=== PATIENT | female | born 2005 ===

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

== ENCOUNTER → 2025-01-16 10:26 | Outpatient (BNVA) | payer BC, MEDICAID, SELFPAY | PROVIDERS: PCP Nurse Practitioner Family; Visit Provider Obstetrics & Gynecology | DX: Z34.90 Encounter for supervision of normal pregnancy, unspecified, unspecified trimester (principal) | CPT/HCPCS: 84315 ==

== ENCOUNTER → 2025-01-30 09:57 | Outpatient (BNVA) | payer BC, MEDICAID, SELFPAY | PROVIDERS: PCP Nurse Practitioner Family; Visit Provider Nurse Practitioner Women's Health | DX: O26.893 Other specified pregnancy related conditions, third trimester (principal); Z3A.33 33 weeks gestation of pregnancy | CPT/HCPCS: 76816; 84315 ==

== ENCOUNTER → 2025-02-15 14:31 | Outpatient (BNVA) | payer BC, MEDICAID, SELFPAY | PROVIDERS: PCP Nurse Practitioner Family; Visit Provider Obstetrics & Gynecology | DX: Z34.90 Encounter for supervision of normal pregnancy, unspecified, unspecified trimester (principal) | CPT/HCPCS: 84315 ==

== ENCOUNTER → 2025-02-22 15:22 | Outpatient (BNVA) | payer BC, MEDICAID, SELFPAY | PROVIDERS: PCP Nurse Practitioner Family; Visit Provider Obstetrics & Gynecology | DX: Z34.90 Encounter for supervision of normal pregnancy, unspecified, unspecified trimester (principal) | CPT/HCPCS: 84315 ==

== ENCOUNTER → 2025-03-01 14:54 | Outpatient (BNVA) | payer BC, MEDICAID, SELFPAY | PROVIDERS: PCP Nurse Practitioner Family; Visit Provider Obstetrics & Gynecology | DX: Z34.90 Encounter for supervision of normal pregnancy, unspecified, unspecified trimester (principal) | CPT/HCPCS: 84315 ==

== ENCOUNTER → 2025-03-08 14:51 | Outpatient (BNVA) | payer BC, MEDICAID, SELFPAY | PROVIDERS: PCP Nurse Practitioner Family; Visit Provider Obstetrics & Gynecology | DX: Z34.90 Encounter for supervision of normal pregnancy, unspecified, unspecified trimester (principal) | CPT/HCPCS: 84315 ==

== ENCOUNTER → 2025-03-09 13:27 | Outpatient (BNVA) | payer BC, MEDICAID, SELFPAY | PROVIDERS: PCP Nurse Practitioner Family; Visit Provider Obstetrics & Gynecology | DX: Z3A.09 9 weeks gestation of pregnancy (principal) | CPT/HCPCS: 84315 ==

== ENCOUNTER 2025-03-16 11:48 | Inpatient (IN) | payer BC, MEDICAID, SELFPAY ==
[2025-03-16] VITALS (43 sets, daily range): BP systolic 102–169; BP diastolic 52–96; PULSE 79–116; RESP 17–18; TEMP 36.7–36.8; O2SAT 89–100; BMI 56.7
[2025-03-16] MEDS: miSOPROStol 100 mcg tablet 25 MCG VAGINAL (12:37)
[2025-03-16 12:38] LABS: Basophils % 0.2 %; Eosinophils # 0.1 10^3/uL (0.0-0.8); Eosinophils % 0.8 %; Hematocrit 33.8 % (36-47); Lymphocytes % 16.7 %; Mean Corpuscular HGB Conc 32.2 g/dL (30-55); Mean Corpuscular Volume 80.7 fl (85-98); Mean Platelet Volume 10.4 fL (7.4-10.4); Monocytes # 0.9 10^3/uL (0.2-0.9); Monocytes % 7.2 %; Neutrophils # 9.08 10^3/uL (1.8-8.0); Neutrophils % 74.4 %; Nucleated Red Blood Cells % 0 %; Platelet Count 270 10^3/cmm (157-399); Red Blood Count 4.19 10^6/uL (3.85-5.65); Red Cell Distribution Width 15.9 % (12.1-15.1); White Blood Count 12.21 10^3/uL (4.5-13.0)
--- NOTE | 2025-03-16 13:40 | P.HP_ITS ---
Providers/Chief Complaint 2 Admitting Physician: Sameer Contreras MD Primary SWEATBAND SEPARATOR: Saemer Contreras MD Primary Care Provider: Oumar Hopkins NP Chief Complaint: INDUCTION OF LABOR HPI SWEATBAND SEPARATOR History of Present Illness Victor Hugo King is a 19 year old female G1 [facility] March 13, 2025 At 40 w 3 d No complications Admitted for induction of labor No c/o + active movements Present Details : 1 Para: 0 Labs Rubella: Immune RPR: Negative GBS: Positive Medications/Allergies Home Medications ?Medication ?Instructions ?Recorded ?Confirmed ?Last Taken ?Type famotidine 20 mg tablet (Pepcid) 20 mg PO BID #60 tabs 01/30/25 03/17/25 Unknown Rx ferrous sulfate 325 mg (65 mg 325 mg PO .every other d ay #30 tabs 01/30/25 03/17/25 Unknown Rx iron) tablet,delayed release Allergies Allergy/AdvReac Type Severity Reaction Status Date / Time No Known Allergies Allergy Verified 03/09/25 13:36 PFSH SWEATBAND SEPARATOR 2 PFSH: Family History Grandmother Colon cancer Father Diabetes Denies family history of Ovarian cancer Prostate cancer Heart disease Hyperlipidemia Breast cancer Hypertension Uterine cancer Thyroid disease Stroke Social History Smoking and tobacco/nicotine status: never used tobacco/nicotine History History History 2 1 Term Miscarriages/Ectopic Living Children Care AYDEN Calculator 2 Estimated Delivery Date Method Current WG Current Estimate 03/13/25 Ultrasound #1 40w 5d Specific Issues/Plans * * NAUSEA IN * GROUP B STREP POSITIVE UTI: + urine culture on 08/08/24, treated with augmentin 08/15/24, plan for antibitocs in labor * CLUBFOOT OF LEFT FOOT ON ULTRASOUND: U/S 10/25/25, seen by MFM on 01/03/25 * OBESITY: BMI 53.6%, 1 hr gtt normal * ANEMIA: Hgb 10.10 at 29 weeks, started on ferrous sulfate every other day * ACID REFLUX: No longer controlled by TUMS, pepcid twice daily prescribed Vitals/I&O/Wt Last Vital Signs Temp 97.7 F 03/18/25 12:45 Pulse 77 03/18/25 12:45 Resp 16 03/18/25 12:45 BP 116/81 03/18/25 12:45 Pulse Ox 99 03/18/25 12:45 O2 Del Method Room Air 03/18/25 04:56 03/18/25 03/18/25 03/18/25 06:59 14:59 22:59 Intake Total 600 / 2691.767 Balance 600 / 2091.767 Physical Exam 2 Narrative: Weight 310 lbs; 5?2? VS normal General comfortable, awake, alert Lungs: clear Cor: RRR FH 38 cm, cephalic Cervix 1-2 cm / 50 / -3 Ext: no edema External monitor: heart tracing good variability, + accelerations Urinary Catheter Management: Tucker: Cath Placed During This Visit: yes, but has since been removed by the nurse Reason for Continuing Indwelling Catheter: Decision to DC Catheter Urinary Catheter Date of Insertion: 03/16/25 Urinary Catheter Time of Insertion: 21:03 Date Urinary Catheter Removed: 03/17/25 Time Urinary Catheter Discontinued: 09:45 Data 03/17/25 22:48 Results Labs OB ([facility]): 2 Obstetrics 01/30/25 Blood Type B Positive 03/16/25 Antibody Screen Negative 03/16/25 Hct, (36-47) 26.1 % L 03/17/25 Hgb, (12.4-14.8) 8.40 g/dL L 03/17/25 Rho(D) Type Rh positive 03/16/25 Plt Count, (157-399) 303 10^3/cmm 03/17/25 Hep Bs Antigen, (Nonreactive) Non-reactive 08/08/24 Hepatitis C Antibody, (Nonreactive) Non-reactive 05/25 Rubella IgG Antibody, (0.0-10.0) 63.0 IU/mL H 4 RPR, (Nonreactive) Nonreactive 08/08/24 HIV 1&2 Ab & HIV 1 Ag, (Non-Reactiv) Non-reactive 05/25 TSH, (0.27-4.20) 1.11 uIU/mL 08/08/24 Glucose 1 Hr 50 gm, (85-140) 113 mg/dL 10/31/24 Ser , Semi-Qnt 31136.00 mIU/mL 07/25/24 HCG, Qual, (Negative) Positive H 07/25/24 Urine Opiates Screen, (Negative) Negative ng/mL 4 Ur Barbiturates Screen, (Negative) Negative ng/mL 08/08 Ur Phencyclidine Scrn, (Negative) Negative ng/mL Ur Amphetamines Screen, (Negative) Negative ng/mL 08/08 U Benzodiazepines Scrn, (Negative) Negative ng/mL 08/08 Urine Cocaine Screen, (Negative) Negative ng/mL 4 U Marijuana (THC) Screen, (Negative) Negative ng/mL 05/25 Micro Urine Specimen 09/20/24 A&P Assessment and plan (1) : 40 w 3 d Admitted for induction of labor Fetus reassuring Plan Cytotec 25 ug intravaginal (2) Abnormal ultrasound: fetus with left clubfoot (3) Group B streptococcal carriage complicating : Had + urine culture for GBS 08-08-24 Plan start Abx when labor is active PDMP PDMP Reviewed: Not Reviewed Attestations 2 Medical Necessity Statement*: patient at 40 w 3 d, admitted for induction of labor Coding Level of Care Code Acute Code for Chg Fwd Diagnoses 9 weeks gestation of Z3A.09 Weeks of gestation: 9 weeks Abnormal ultrasound O28.3 Group B streptococcal carriage complicating O99.820
[2025-03-16] MEDS: ampicillin 2,000 MG in sodium chloride 0.9% (plus) 50 ML 100 MG IV (16:54)
[2025-03-16] MEDS: dextrose 5%-lactated ringers 1,000 ML 125 ML IV (16:54)
[2025-03-16] MEDS: oxytocin 30 UNIT/500 ML BAG IV (17:43)
[2025-03-16] MEDS: lactated ringers 1,000 ML 999 ML IV (19:25)
[2025-03-16] MEDS: ampicillin 1,000 MG in sodium chloride 0.9% (plus) 50 ML 100 MG IV (20:27)
--- NOTE | 2025-03-16 20:43 | P.ANESASSM_ITS ---
Pre-Anesthetic Assessment Height/Weight: Height 1.57 m Weight 140.614 kg Temp Pulse Resp BP Pulse Ox O2 Del Method 98.2 F 116 H 18 148/66 89 L Room Air 03/16/25 17:48 03/16/25 20:40 03/16/25 17:48 03/16/25 20:37 03/16/25 20:40 03/16/25 12:55 Preop Diagnosis: Labor pain EZIO Was Beta Selina taken within 24 hours: N/A Was Clonidine taken within 24 hours: N/A Social No alcohol and No tobacco Exam alert, oriented x 3, clear to auscultation bilaterally and regular rate & rhythm Airway Submandibular: within normal limits Cervical ROM: within normal limits Mallampati: Class II Dentition: full History/ROS No significant history except as noted and No significant complaints Pulmonary None reported CV/HEM None reported None reported Hepatic None reported GI Gastroesophageal Reflux Disease Metabolic Morbid Ob[place] [facility] [place] None reported Neuropsych None reported Anesthetic Plan ASA status: 2 Anesthesia: Anesthesia Evaluation and Regional (specify below) (EZIO) Risk of > 500 ml blood loss (7ml/kg in children): No Medications/Allergies Home Medications ?Medication ?Instructions ?Recorded ?Confirmed ?Last Taken ?Type famotidine 20 mg tablet (Pepcid) 20 mg PO BID #60 tabs 01/30/25 03/14/25 Unknown Rx ferrous sulfate 325 mg (65 mg 325 mg PO .every other d ay #30 tabs 01/30/25 03/14/25 Unknown Rx iron) tablet,delayed release Allergies Allergy/AdvReac Type Severity Reaction Status Date / Time No Known Allergies Allergy Verified 03/09/25 13:36 Current Medications Generic Name Dose Route Start Last Admin Trade Name Freq PRN Reason Stop Dose Admin Dextrose/Lactated Ringer's 1,000 mls @ 125 mls/hr 03/16/25 12:11 03/16/25 20:30 Dextrose 5%-Lactated Ringers IV 125 mls/hr .Q8H PRN Infusion per label comments Ampicillin Sodium 1,000 mg/ 50 mls @ 100 mls/hr 03/16/25 20:45 03/16/25 20:27 Sodium Chloride IV 100 mls/hr Q4H SUKHWINDER Administration Protocol Oxytocin 30 unit in 500 mls @ 1 mls/hr 03/16/25 16:45 03/16/25 18:30 Pitocin IV 3 milliunit/min .Q24H SUKHWINDER 3 mls/hr Protocol Titration 1 MILLIUNIT/MIN Lactated Ringer's 1,000 mls @ 999 mls/hr 03/16/25 19:11 03/16/25 20:30 Lactated Ringers IV Infused .Q1H1M PRN Infusion See label comments PFSH Anesthesia Family History Grandmother Colon cancer Father Diabetes Denies family history of Ovarian cancer Prostate cancer Heart disease Hyperlipidemia Breast cancer Hypertension Uterine cancer Thyroid disease Stroke Social History Smoking and tobacco/nicotine status: never used tobacco/nicotine Female Reproductive History : 1 Data Anesthesia 03/16/25 12:25 Short CBC 03/16/25 Range/Units 12:25 WBC 12.21 (4.5-13.0) 10^3/uL Hgb 10.90 L (12.4-14.8) g/dL Hct 33.8 L (36-47) % MCV 80.7 L (85-98) fl Plt Count 270 (157-399) 10^3/cmm Neut % (Auto) 74.4 % Neut # (Auto) 9.08 H (1.8-8.0) 10^3/uL
--- NOTE | 2025-03-16 20:45 | ANES.PROC ---
Anesthesia Procedures Procedure/Date: 03/16/25 Epidural: Time Out Performed: Yes Consents Signed: Procedure Consent Consent: requested by attending/covering physician, from patient, risks and benefits reviewed and patient agrees to proceed Lumbar Level: L2-L3 Epidural position: sitting Epidural procedure: sterile prep of area, 1% lidocaine to numb the area, 18 g needle, neg for paresthesia, test dose given, 1.5% xylocaine 1:200k epi (5cc), 0.2% Ropivacaine bolus ml (4cc and Fentanyl 100mcg), placed PCEA, no systemic response, sterile dressing applied and 0.2% Ropiavacaine @ mls/hr (12cc/hour) Additional Comments: ONEIDA at 9cm. Cath placed 2.5 cm into epid space. Pt tolerated well
[2025-03-16] MEDS: ROPivacaine syringe 100 MG/50 ML SYRINGE 12 MG EPIDURAL (20:49)
[2025-03-17] VITALS (58 sets, daily range): BP systolic 115–153; BP diastolic 56–92; PULSE 90–157; RESP 16–20; TEMP 36.5–37.4; O2SAT 96–99
[2025-03-17] MEDS: ROPivacaine syringe 100 MG/50 ML SYRINGE 12 MG EPIDURAL ×4 (00:01→08:31)
[2025-03-17] MEDS: ampicillin 1,000 MG in sodium chloride 0.9% (plus) 50 ML 100 MG IV ×3 (00:45→08:31)
[2025-03-17] MEDS: dextrose 5%-lactated ringers 1,000 ML 125 ML IV (01:54)
--- NOTE | 2025-03-17 10:05 | PM.DELIVERY ---
Delivery Note: Date of delivery: March 17, 2025 Pre-delivery diagnoses: 40 w 3 d induction of labor GBS colonization fetus with clubfoot Post-delivery diagnoses: 40 w 3 d induction of labor GBS colonization fetus with clubfoot vaginal delivery repair of second-degree perineal laceration Procedure: induction of labor repair of second-degree perineal laceration Op report anesthesia: Epidural Delivering Physician: Sameer Contreras MD Estimated blood loss (mL): 300 Findings: , vigorous female infant + nuchal cord reduced Cord gases and blood obtained Normal placenta and cord No episiotomy Second-degree perineal laceration repaired EBL: 300 cc No complications Pre-Delivery Course: normal labor course fetus reassuring throughout Delivery: vaginal Post-Delivery Status: good History History History 1 Term Miscarriages/Ectopic Living Children A&P Assessment and plan (1) Vaginal delivery: PDMP PDMP Reviewed: Not Reviewed Coding Level of Care Code Acute Code for Chg Fwd Diagnoses Vaginal delivery O80
[2025-03-17] MEDS: lidocaine 2% INJ 20 mL INJECTION (10:08)
[2025-03-17] MEDS: benzocaine-menthol 78 gm Canister 1 SPRAY TOPICAL (12:27)
[2025-03-17] MEDS: lanolin oint 7 gm 1 APPLIC TOPICAL (12:28)
[2025-03-17] MEDS: HYDROcodone-acetaminophen 5-325 mg Tablet PO (12:28)
--- NOTE | 2025-03-17 13:16 | PC.NURSE ---
assisted pt up to bathroom and with skip care. pt voided in toilet, not hat. pad and gown changed. back to bed without difficulty.
[2025-03-17] MEDS: ibuprofen 800 mg tablet PO ×2 (14:34→20:18)
--- NOTE | 2025-03-17 15:21 | PC.NURSE ---
pt up to bathroom, then ambulated to OB9 for routine post stay. oriented to room/call light. proud parent pack and feeding log discussed
[2025-03-17] MEDS: docusate sodium 100 mg Capsule PO (18:04)
[2025-03-17 22:57] LABS: Hematocrit 26.1 % (36-47); Mean Corpuscular HGB Conc 32.2 g/dL (30-55); Mean Corpuscular Hemoglobin 26.2 pg (27-33); Mean Corpuscular Volume 81.3 fl (85-98); Mean Platelet Volume 10.2 fL (7.4-10.4); Platelet Count 303 10^3/cmm (157-399); Red Blood Count 3.21 10^6/uL (3.85-5.65); Red Cell Distribution Width 14.6 % (12.1-15.1); White Blood Count 21.26 10^3/uL (4.5-13.0)
[2025-03-18 04:56] VITALS: BP 122/79; PULSE 106; RESP 16; TEMP 36.5; O2SAT 98
[2025-03-18] MEDS: ibuprofen 800 mg tablet PO (08:39)
[2025-03-18] MEDS: PRENATAL VIT NO.130/IRON/FOLIC 1 EACH TABLET PO (08:39)
[2025-03-18] MEDS: docusate sodium 100 mg Capsule PO (08:39)
[2025-03-18] MEDS: ferrous sulfate EC 325 mg Tablet PO (08:39)
[2025-03-18 12:45] VITALS: BP 116/81; PULSE 77; RESP 16; TEMP 36.5; O2SAT 99
--- NOTE | 2025-03-18 14:05 | PM.OBGYDC ---
Discharge Providers IRRIGATIONIST DESIGNER Date of Admission: 03/16/25 11:48 Date of Discharge: 03/18/25 Attending Provider at Admission: Sameer Contreras MD Attending Provider at Discharge: Sameer Contreras MD Consults: none Primary IRRIGATIONIST DESIGNER: Sameer Contreras MD Primary Care Provider: Oumar Hopkins NP Diagnoses at Discharge Discharge Diagnosis (1) Vaginal delivery: Details from hospital stay: 19 y.o. G1 [facility] March 13, 2025 at 40 w 3 d no complications admitted for induction of labor patient was started on cytotec 25 ug intravaginal x two doses, then pitocin patient progressed to complete dilatation She delivered vaginally a vigorous female infant without any complications had repair of second-degree perineal laceration patient did well and was discharged to home on the first day Status: Acute Reason for Visit Reason for Visit: INDUCTION OF LABOR Brief History: 19 y.o. G1 [facility] March 13, 2025 at 40 w 3 d no complications admitted for induction of labor Hospital Course Hospital Course 19 y.o. G1 [facility] March 13, 2025 at 40 w 3 d no complications admitted for induction of labor patient was started on cytotec 25 ug intravaginal x two doses, then pitocin patient progressed to complete dilatation She delivered vaginally a vigorous female without any complications had repair of second-degree perineal laceration patient did well and was discharged to home on the first day Information Peripartum Data: Delivery Method: Vaginal Laceration description: Perineal - 2nd Degree Episiotomy description: None complications: none Physical Exam Narrative: General comfortable, awake, alert VS normal Lungs: clear Cor: RRR Abd: soft, nontender Ext: no edema Urinary Catheter Management: Tucker: Cath Placed During This Visit: yes, but has since been removed by the nurse Reason for Continuing Indwelling Catheter: Decision to DC Catheter Urinary Catheter Date of Insertion: 03/16/25 Urinary Catheter Time of Insertion: 21:03 Date Urinary Catheter Removed: 03/17/25 Time Urinary Catheter Discontinued: 09:45 History History History 1 Term Miscarriages/Ectopic Living Children Discharge Data Studies Completed and Pending Laboratory Results WBC 21.26 10^3/uL (4.5-13.0) H 03/17/25 22:48 RBC 3.21 10^6/uL (3.85-5.65) L 03/17/25 22:48 Hgb 8.40 g/dL (12.4-14.8) L 03/17/25 22:48 Hct 26.1 % (36-47) L 03/17/25 22:48 MCV 81.3 fl (85-98) L 03/17/25 22:48 MCH 26.2 pg (27-33) L 03/17/25 22:48 MCHC 32.2 g/dL (30-55) 03/17/25 22:48 RDW 14.6 % (12.1-15.1) 03/17/25 22:48 Plt Count 303 10^3/cmm (157-399) 03/17/25 22:48 MPV 10.2 fL (7.4-10.4) 03/17/25 22:48 Neut % (Auto) 74.4 % 03/16/25 12:25 Lymph % (Auto) 16.7 % 03/16/25 12:25 [place] % (Auto) 7.2 % 03/16/25 12:25 Eos % (Auto) 0.8 % 03/16/25 12:25 Baso % (Auto) 0.2 % 03/16/25 12:25 Neut # (Auto) 9.08 10^3/uL (1.8-8.0) H 03/16/25 12:25 Lymph # (Auto) 2.0 10^3/uL (1.5-6.5) 03/16/25 12:25 [place] # (Auto) 0.9 10^3/uL (0.2-0.9) 03/16/25 12:25 Eos # (Auto) 0.1 10^3/uL (0.0-0.8) 03/16/25 12:25 Baso # (Auto) 0.0 10^3/uL (0.0-0.1) 03/16/25 12:25 Nucleated RBC % (auto) 0 % 03/16/25 12:25 Nucleated RBCs # 0.0 /100WBC 03/16/25 12:25 Blood Type B Positive 03/16/25 13:00 Rho(D) Type Rh positive 03/16/25 13:00 Antibody Screen Negative 03/16/25 13:00 Procedures Performed induction of labor vaginal delivery repair of second-degree perineal laceration Vitals Last Vital Signs Temp 97.7 F 03/18/25 12:45 Pulse 77 03/18/25 12:45 Resp 16 03/18/25 12:45 BP 116/81 03/18/25 12:45 Pulse Ox 99 03/18/25 12:45 O2 Del Method Room Air 03/18/25 04:56 Results Labs OB ([facility]): Obstetrics US 01/30/25 Blood Type B Positive 03/16/25 Antibody Screen Negative 03/16/25 Hct, (36-47) 26.1 % L 03/17/25 Hgb, (12.4-14.8) 8.40 g/dL L 03/17/25 Rho(D) Type Rh positive 03/16/25 Plt Count, (157-399) 303 10^3/cmm 03/17/25 Hep Bs Antigen, (Nonreactive) Non-reactive 08/08/24 Hepatitis C Antibody, (Nonreactive) Non-reactive 08/08/24 Rubella IgG Antibody, (0.0-10.0) 63.0 IU/mL H 08/08/24 RPR, (Nonreactive) Nonreactive 08/08/24 HIV 1&2 Ab & HIV 1 Ag, (Non-Reactiv) Non-reactive 08/08/24 TSH, (0.27-4.20) 1.11 uIU/mL 08/08/24 Glucose 1 Hr 50 gm, (85-140) 113 mg/dL 10/31/24 Ser , Semi-Qnt 60179.00 mIU/mL 07/25/24 HCG, Qual, (Negative) Positive H 07/25/24 Urine Opiates Screen, (Negative) Negative ng/mL 08/08/24 Ur Barbiturates Screen, (Negative) Negative ng/mL 08/08/24 Ur Phencyclidine Scrn, (Negative) Negative ng/mL 08/08/24 Ur Amphetamines Screen, (Negative) Negative ng/mL 08/08/24 U Benzodiazepines Scrn, (Negative) Negative ng/mL 08/08/24 Urine Cocaine Screen, (Negative) Negative ng/mL 08/08/24 U Marijuana (THC) Screen, (Negative) Negative ng/mL 08/08/24 Micro Urine Specimen 09/20/24 Discharge Plan Discharge Patient Disposition: Home Condition: Stable Prescriptions: Continued famotidine [Pepcid] 20 mg tablet 20 mg PO BID Qty: 60 2RF ferrous sulfate 325 mg (65 mg iron) tablet,delayed release (DR/EC) 325 mg PO .every other day Qty: 30 0RF Rx Instructions: take once every other day Discharge Orders: Discharge Order (Routine); Ordered 03/18/25 Ordered By: Sameer Contreras Referrals: Sameer Contreras MD [Physician, IRRIGATIONIST DESIGNER] - 6 Weeks Discharge Diet: Usual diet Discharge Activity: Increase activity as tolerated Patient Instructions: OB Anesthesia Instructions, OB Food/Drug Interaction Guide, OB Care at Home, Opioid Safety, OB Proud Parent Packet, OB Vaginal Deliveries - [facility], Vaginal Laceration during Childbirth Activity Restrictions/Additional Instructions: MAY TAKE OVER THE COUNTER TYLENOL AND IBUPROFEN FOR PAIN NEEDED DIRECTED PER BOTTLE INSTRUCTIONS. ALSO ENCOURAGED TO TAKE AN OVER THE COUNTER STOOL SOFTENER Discharge Attestations IRRIGATIONIST DESIGNER Time Spent in Discharge Care*: less than 30 min Coding Level of Care Code Acute Code for Chg Fwd Diagnoses Vaginal delivery O80
== END 2025-03-18 13:00 | disposition home or self-care (01) | DRG 807 ==
LOC: OPOB 11:49 → OBGYN 11:49
PROVIDERS: Admitting Provider Obstetrics & Gynecology; PCP Nurse Practitioner Family; Visit Provider Obstetrics & Gynecology
DX: O48.0 Post-term pregnancy (principal); Z37.0 Single live birth; Z3A.40 40 weeks gestation of pregnancy; O99.824 Streptococcus B carrier state complicating childbirth; O99.02 Anemia complicating childbirth; D64.9 Anemia, unspecified; O69.81X0 Labor and delivery complicated by cord around neck, without compression, not applicable or unspecified; O70.1 Second degree perineal laceration during delivery; O99.214 Obesity complicating childbirth; E66.9 Obesity, unspecified; K21.9 Gastro-esophageal reflux disease without esophagitis; O75.89 Other specified complications of labor and delivery
CPT/HCPCS: 36415; 51702; 59025; 59409; 85025; 85027; 86850; 86900; 96374; 96376; 99211; J0290; J2590; J2795; J3010; J7120; J7121; J9999